=== PATIENT | female | born 2000 | race Caucasian/White ===

== ENCOUNTER 2021-12-26 15:09 | Emergency (ER) | payer OTHER, SELFPAY ==
--- NOTE | ~2021-12-26 | XR_ITS ---
EXAMINATION: XR ANKLE, RIGHT CLINICAL INFORMATION: Pain COMPARISON: None TECHNIQUE: AP, lateral, and mortise views of the right ankle. FINDINGS: The bones and soft tissues are normal. No fracture. Alignment is anatomic. Joint spaces are maintained. No joint effusion. XR/XR ankle RT 2V IMPRESSION: Normal right ankle.
[2021-12-26 16:10] VITALS: BP 104/60; PULSE 689; RESP 18; TEMP 36.9; O2SAT 98; BMI 25.4
--- NOTE | 2021-12-26 17:43 | ED_ITS ---
HPI - Extremity Injury (Lower) General Chief Complaint: Extremity Injury, Lower Stated Complaint: ankle pain Time Seen by Provider: 12/26/21 17:43 Source: patient Mode of arrival: ambulatory Limitations: no limitations History of Present Illness HPI Narrative: 21-year-old female here with reports of right ankle pain since Saturday with no known injury or trauma. Patient denies any previous injury. No reports of f ever, redness, swelling, numbness or tingling Related Data Allergies Allergy/AdvReac Type Severity Reaction Status Date / Time No Known Allergies Allergy Verified 12/26/21 17:37 Review of Systems Review of Systems: Yes all other systems are reviewed and are negative Constitutional: Constitutional: Reports no additional constitutional complaints, Denies body ache(s), Denies chills, Denies fever(s), Denies headache(s) and Denies weakness Eyes: Eyes: Reports no additional eye complaints and Denies change in vision ENT: Reports system reviewed and no additional complaints, except as documented, Denies dizziness, Denies headache(s), Denies nasal congestion, Denies nasal discharge and Denies neck pain Cardiovascular: Cardiovascular: Reports no additional cardiovascular complaints, Denies chest pain, Denies leg edema and Denies dyspnea Respiratory: Respiratory: Reports no additional respiratory complaints, Denies cough and Denies dyspnea Gastrointestinal: Gastrointestinal: Reports no additional gastrointestinal complaints, Denies abdominal pain, Denies diarrhea, Denies nausea and Denies vomiting Genitourinary: Genitourinary: Reports no additional female genitourinary complaints and Denies urinary incontinence Musculoskeletal: Musculoskeletal: Reports no additional musculoskeletal complaints, Denies back pain, Reports arthralgias, Denies joint swelling, Denies neck pain, Denies numbness and Denies tingling Integumentary/Breasts: Skin/Breast: Reports system reviewed and no additional complaints, except as docu and Denies rash Neurologic: Reports system reviewed and no additional complaints, except as documented, Denies Abnormal speech present, Denies dizziness, Denies headache(s), Denies numbness, Denies tingling and Denies weakness PMFSH Past Medical History Attestation statement: The following information was validated with the patient. Source: old records reviewed and nursing notes reviewed Social History Social History Advance Directives: No Advance Directives Information Provided: No Physical Exam Vital Signs: Vital Signs: Last Vital Signs Temp 98.5 F 12/26/21 16:10 Pulse 689 H 12/26/21 16:10 Resp 18 12/26/21 16:10 BP 104/60 12/26/21 16:10 Pulse Ox 98 12/26/21 16:10 BMI result Body Mass Index 25.4 Const: General: cooperative, healthy appearing, comfortable and no acute distress Orientation/consciousness: patient oriented x3 Limitations: no limitations HEENT: Head: Yes normal to inspection Ears: hearing grossly normal bilaterally General nose exam: Normal external nose present Face and sinus: Yes normal facial exam Mouth: Normal oral and palatal mucosa present Throat: Yes posterior oropharynx normal Eyes: General: appearance normal, both eyes and all related structures Pupils: Equal, round and reactive pupils present Neck: Neck: Yes normal visual inspection Chest: Chest palpation & inspection: normal inspection of the chest Resp: Effort & Inspection: normal respiratory effort Auscultation: clear to auscultation bilaterally Cardio: Rate: regular rate Rhythm: regular rhythm Peripheral pulses: Peripheral pulses 2+ throughout GI: Inspection: Yes normal to inspection Palpation (GI): Soft to palpation and nontender Auscultation: normal bowel sounds Back/Spine/Pelvis: Thoracic/Lumbar Spine: thoracic and lumbar spine normal to inspection Skin: General skin exam: no rashes or lesions noted Neuro: General: patient oriented x3, no focal motor deficits and normal sensation to monofilament Cranial nerves: Yes Equal, round and reactive pupils present Cognition (Neuro): normal cognition Speech: No Abnormal speech present Gait exam (Neuro): Normal gait present Motor exam (neuro): 5/5 motor strength present throughout Extrem: Other: there is mild tenderness to the right lateral ankle with FROM. Palpable DP and PT pulses. No swelling, no redness, no warmth. Neurovascular intact distally General: Yes normal to inspection Course Course Course Narrative: Atraumatic right ankle pain for several days. No evidence of warmth or redness or swelling. Low concern for septic joint or cellulitis with no skin changes or reports of fevers or chills and FROM. No polyarthralgia or other joint pain reported so less likely RA, lyme. X-ray show no bony abnormality. Will place in jarod wrap and crutches. [place]. Reviewed worrisome signs and symptoms of when to return to the emergency department. Comfortable discharge home. MDM - Extremity Injury (Lower) Medical Records Attestation: I reviewed the patient's medical records. Lab Data Attestation: I reviewed the patient's lab results. Imaging Data ankle xray: Attestation: I personally reviewed and interpreted this imaging study as follows: Radiologist's impression: [address] [address] XRay Report Signed Patient: Hanna Childers MR#: [id number] : 2000 Acct:[id number] Age/Sex: 21 / F ADM Date: 12/26/21 Loc: HO.ED Attending Dr: Ordering Physician: Generic ED Physician Date of Service: 12/26/21 Procedure(s): XR ankle RT 2V Accession Number(s): [id number] cc: Generic ED Physician~ EXAMINATION: XR ANKLE, RIGHT CLINICAL INFORMATION: Pain? COMPARISON: None? TECHNIQUE: AP, lateral, and mortise views of the right ankle. FINDINGS: The bones and soft tissues are normal. No fracture. Alignment is anatomic. Joint spaces are maintained. No joint effusion.? XR/XR ankle RT 2V IMPRESSION: Normal right ankle. Procedures Procedure Narrative Procedure Narrative: jarod wrap, crutches Discharge Plan Discharge Clinical Impression: Ankle pain, right Patient Disposition: Home, Self-Care Instructions: Arthralgia (ED) Additional Instructions: Rest, ice, elevation Use the Jarod wrap and crutches with nonweightbearing for few days until able to bear weight without experiencing pain Take Motrin 3 times daily Follow-up with primary care doctor in 7 days for persistent symptoms Referrals: Physician,Unknown J [Primary Care Provider] - 1 week (For persistent symptoms) Stand Alone Forms: Work/School Release Interventions: ED Discharge Assessment Last Done: 12/26/21 18:52 Discharge Date/Time: 12/26/21 18:54
== END 2021-12-26 18:54 | disposition home or self-care (01) ==
LOC: HO.ED 17:53
PROVIDERS: Emergency Provider Internal Medicine
DX: M25.571 Pain in right ankle and joints of right foot (principal)
CPT/HCPCS: 73600; 99282; 99283

== ENCOUNTER 2022-02-11 08:06 | Emergency (ER) | payer OTHER, SELFPAY ==
[2022-02-11 08:08] VITALS: BP 121/62; PULSE 82; RESP 18; TEMP 36.3; O2SAT 99; BMI 27.3
[2022-02-11 08:22] LABS: COVID-19 Test Positive (Negative); IDNOW Serial# 16C4AD1C
--- NOTE | 2022-02-11 08:42 | ED.GENADULT ---
HPI - General Adult General Chief complaint: General Medical Stated complaint: headache Time Seen by Provider: 02/11/22 08:34 Source: patient Mode of arrival: ambulatory History of Present Illness HPI narrative: 21 years old female presented to the emergency department with a chief complaint of headache, congestion, malaise x2 days Onset (ago): day(s) (2) Radiation: non-radiation Severity: moderate Quality: burning Pain Consistency: constant Exacerbating factors: none Treatments prior to arrival: none Related Data Allergies Allergy/AdvReac Type Severity Reaction Status Date / Time No Known Allergies Allergy Verified 12/26/21 17:37 Review of Systems Review of Systems: Yes all other systems are reviewed and are negative Cardiovascular: Cardiovascular: Reports no additional cardiovascular complaints Respiratory: Respiratory: Reports no additional respiratory complaints Gastrointestinal: Gastrointestinal: Reports no additional gastrointestinal complaints Genitourinary: Genitourinary: Reports no additional female genitourinary complaints Neurologic: Reports system reviewed and no additional complaints, except as documented PMFSH Social History Social History Advance Directives: No Advance Directives Information Provided: No Physical Exam ED Vital Signs: Vital Signs - 24 hr 02/11/22 08:08 Temperature 97.4 F Pulse Rate 82 Respiratory Rate 18 Blood Pressure 121/62 Pulse Oximetry 99 Oxygen Delivery Method Room Air BMI result Body Mass Index 27.3 Const General: cooperative Nutritional Appearance: average body habitus Orientation/consciousness: patient oriented x3 Limitations: no limitations HENMT Head: Yes normal to inspection Face and sinus: Yes normal facial exam Mouth: Normal oral and palatal mucosa present Neck Neck: Yes normal visual inspection, Yes full ROM and Yes no lymphadenopathy Chest Chest palpation & inspection: normal inspection of the chest Resp Effort & Inspection: normal respiratory effort Auscultation: clear to auscultation bilaterally Cardio Jugular venous distension: no JVD Rate: regular rate Rhythm: regular rhythm GI Inspection: Yes normal to inspection Palpation (GI): Soft to palpation, not firm, nontender, no guarding and not rigid Auscultation: normal bowel sounds Skin General skin exam: no rashes or lesions noted and elasticity normal Lesions: no lesions Rashes: no rashes Neuro General: patient oriented x3 Medical Decision Making [facility] Narrative Medical decision making narrative: Patient is COVID positive but she has a low risk she has no comorbidity oxygen saturation 99% she can be discharged home Lab Data Lab results reviewed: Yes I reviewed the patient's lab results. Labs: Lab Results 02/11/22 Range/Units 08:11 COVID-19 (MARCOS) Positive A (Negative) COVID-19 Clin Com See Note Discharge Plan Discharge Clinical Impression: COVID-19 Patient Disposition: Home, Self-Care Instructions: COVID-19 (Coronavirus Disease 2019) (ED) Additional Instructions: He tests positive for COVID take ibuprofen 600 mg every 8 hours as needed rest plenty of fluids Interventions: ED Discharge Assessment Last Done: 02/11/22 09:06 Discharge Date/Time: 02/11/22 09:06
[2022-02-11] MEDS: Ibuprofen 800 MG TABLET PO (09:03)
== END 2022-02-11 09:06 | disposition home or self-care (01) ==
PROVIDERS: Emergency Provider Emergency Medicine
DX: U07.1 COVID-19 (principal); R51.9 Headache, unspecified
CPT/HCPCS: 87635; 99283

== ENCOUNTER 2022-07-04 11:36 | Emergency (ER) | payer OTHER, SELFPAY ==
[2022-07-04 12:25] VITALS: BP 141/54; PULSE 122; RESP 19; TEMP 38.7; O2SAT 98; BMI 27.3
--- NOTE | 2022-07-04 12:30 | ED.URI ---
HPI - URI/Sore Throat General Chief Complaint: Upper Respiratory Symptoms <Marlon Nielsen MD - Last Filed: 07/04/22 12:32> Stated Complaint: headache, chills <Marlon Nielsen MD - Last Filed: 07/04/22 12:32> Time Seen by Provider: 07/04/22 15:42 <Marlon Nielsen MD - Last Filed: 07/04/22 12:32> Source: patient <LANDON Williamson - Last Filed: 07/04/22 16:00> Mode of arrival: ambulatory <LANDON Williamson - Last Filed: 07/04/22 16:00> Limitations: no limitations <LANDON Williamson - Last Filed: 07/04/22 16:00> History of Present Illness HPI Narrative: 21 year old female no past medical history presents with chill, fatigue, malaise and diffuse headache (w/o trauma, vision changes, or dizziness) since last night. Hasnt taken her temperature at home. Reports sudden onset of symptoms. No known sick contacts. Hasnt taken at home COVID test. Not vaccinated against Flu or COVID. Denies CP, SOB, nausea, vomiting, abdominal pain, vision changes, dizziness, leg swelling, sore throat, cough, ear pain. Eating and drinking well and in normal spirits. <LANDON Williamson - Last Filed: 07/04/22 16:00> Related Data Home Medications: Previous Rx's Medication Instructions Recorded oseltamivir 75 mg capsule (Tamiflu) 75 mg PO BID 5 days #10 caps 07/04/22 <Marlon Nielsen MD - Last Filed: 07/04/22 12:32> Allergies/Adverse Reactions: Allergies Allergy/AdvReac Type Severity Reaction Status Date / Time No Known Allergies Allergy Verified 07/04/22 12:24 <Marlon Nielsen MD - Last Filed: 07/04/22 12:32> Review of Systems Review of Systems: Constitutional : No Weight loss, No Fever, No Chills, + Fatigue, + Malaise ENT/Mouth : No sore throat, No Rhinorrhea Eyes: No Eye Pain, No Swelling, No Redness Cardiovascular : No Chest Pain, No SOB, No Dyspnea on Exertion, No Orthopnea, No Edema, No Palpitations Respiratory : No Cough, No Sputum, No Wheezing Gastrointestinal : No Nausea, No Vomiting, No Diarrhea, No Constipation, No abdominal Pain, No Hematochezia, No Melena Genitourinary : No Dysuria, No Urinary Frequency, No Hematuria, Musculoskeletal : No joint pain, No Myalgias, No Joint Swelling Skin : No Skin Lesions, No rash Neuro : No Weakness, No Numbness, No Dizziness, + Headache Psych : No Anxiety/Panic, No Depression <LANDON Williamson - Last Filed: 07/04/22 16:00> Yes all other systems are reviewed and are negative <LANDON Williamson - Last Filed: 07/04/22 16:00> [facility] Past Medical History Attestation statement: The following information was validated with the patient. <LANDON Williamson - Last Filed: 07/04/22 16:00> Source: old records reviewed and nursing notes reviewed <LANDON Williamson - Last Filed: 07/04/22 16:00> Social History Social History: Social History Advance Directives: No Advance Directives Information Provided: No <Marlon Nielsen MD - Last Filed: 07/04/22 12:32> Physical Exam Vital Signs: Vital Signs: Last Vital Signs Temp 101.7 F H 07/04/22 12:25 Pulse 122 H 07/04/22 12:25 Resp 19 07/04/22 12:25 BP 141/54 H 07/04/22 12:25 Pulse Ox 98 07/04/22 12:25 O2 Del Method 07/04/22 12:25 BMI result Body Mass Index 27.3 <Marlon Nielsen MD - Last Filed: 07/04/22 12:32> Vital Signs: Last Vital Signs Temp 101.7 F H 07/04/22 12:25 Pulse 122 H 07/04/22 12:25 Resp 19 07/04/22 12:25 BP 141/54 H 07/04/22 12:25 Pulse Ox 98 07/04/22 12:25 O2 Del Method 07/04/22 12:25 BMI result Body Mass Index 27.3 VSS <LANDON Williamson - Last Filed: 07/04/22 16:00> Appearance: Alert.? Oriented X3.? No acute distress.? Head:? Normocephalic, atraumatic, no step-offs or deformities Eyes: Pupils equal, round and reactive to light.? Neck: Normal inspection.? Neck supple.?No menigeal signs CVS: Rapid heart rate and nml rhythm.? Pulses normal.? Respiratory: No respiratory distress.? Breath sounds normal.? Abdomen: Soft and nontender.? Skin: Skin warm and dry.? Normal skin color.? Normal skin turgor.? Extremities: No lower extremity edema.? No calf ttp.? 5/5 strength to bilateral upper and lower extremities Neuro: Oriented X 3.? No motor deficit.? No sensory deficit. CN 2-12 intact. Normal steady gait w/ normal coordination. Normal rapid alternating movements. finger to nose wnl <LANDON Williamson - Last Filed: 07/04/22 16:00> Course Course Course Narrative: RME: 21-year-old female who presents emergency department for evaluation of cough, fever, chills, rhinorrhea and sore throat x2 days. Patient has been vaccinated for COVID-19 2 vaccines, she did not have influenza vaccine. Examination did reveal a fever 101.7 and tachycardia. She is awake and alert, answers all questions appropriately, head normocephalic atraumatic, pupils equal round reactive light, sclera contact however normal, nares revealed thick rhinorrhea, mouth revealed moist membranes with no erythema or exudate, lungs clear to auscultation, breath sounds symmetric bilaterally, heart tachycardia normal S1-S2 no murmurs rubs gallops, abdomen soft nontender, extremities unremarkable, neurologic exam nonfocal. Patient was ordered to get Motrin 600 mg orally for fever. Also ordered COVID and influenza test. I do not think that she needs blood work or x-ray at this time. <Marlon Nielsen MD - Last Filed: 07/04/22 12:32> Reevaluation(s) Reevaluation #1: Influenza + discussed initiation of tamiflu with patient she would like it, appropriate sx onset < 48hours. DC home with pcp fu and strict return percautions. Comfortable w/ dc <LANDON Williamson - Last Filed: 07/04/22 16:00> Medications Administered Discontinued Medications Generic Name Dose Route Start Last Admin Trade Name Freq PRN Reason Stop Dose Admin Ibuprofen 600 mg 07/04/22 12:29 07/04/22 12:32 Ibuprofen 600 Mg Tablet PO 07/04/22 12:30 600 mg ONCE STA Administration <Marlon Nielsen MD - Last Filed: 07/04/22 12:32> Medications Administered Discontinued Medications Generic Name Dose Route Start Last Admin Trade Name Freq PRN Reason Stop Dose Admin Ibuprofen 600 mg 07/04/22 12:29 07/04/22 12:32 Ibuprofen 600 Mg Tablet PO 07/04/22 12:30 600 mg ONCE STA Administration <LANDON Williamson - Last Filed: 07/04/22 16:00> MDM - URI/Sore Throat MDM Narrative Medical decision making narrative: 1544 21 year old female presents w/ flu like sx since last night. Not vaccinated PE w/ febrile patient and tachycardia. Lungs clear. Abd soft non tender non distended. Neuro nonfocal. Cerbellar intact To note patient has tachycardia, fever likely secondary to viral infection. ALBARRAN likely secondary to viral infection. Unlikely stroke, posterior stroke, ICH, SAH, PNA, PE, CHF Plan: Flu/Covid/RSV <LANDON Williamson - Last Filed: 07/04/22 16:00> Medical Records Attestation: I reviewed the patient's medical records. <LANDON Williamson - Last Filed: 07/04/22 16:00> Lab Data Attestation: I reviewed the patient's lab results. <LANDON Williamson - Last Filed: 07/04/22 16:00> Labs: Lab Results 07/04/22 07/04/22 Range/Units 12:36 12:36 COVID-19 (MARCOS) Negative (Negative) COVID-19 Clin Com See Note Influenza Type A (ANTHONY) Positive A (Negative) Influenza Type B (ANTHONY) Negative (Negative) Influenza A & B Note See Note <Marlon Nielsen MD - Last Filed: 07/04/22 12:32> Lab Results 07/04/22 07/04/22 Range/Units 12:36 12:36 COVID-19 (MARCOS) Negative (Negative) COVID-19 Clin Com See Note Influenza Type A (ANTHONY) Positive A (Negative) Influenza Type B (ANTHONY) Negative (Negative) Influenza A & B Note See Note <LANDON Williamson - Last Filed: 07/04/22 16:00> Discharge Plan Discharge Clinical Impression: Influenza <Marlon Nielsen MD - Last Filed: 07/04/22 12:32> Patient Disposition: Home, Self-Care <Marlon Nielsen MD - Last Filed: 07/04/22 12:32> Instructions: Influenza (ED) <Marlon Nielsen MD - Last Filed: 07/04/22 12:32> Additional Instructions: Take your medications as prescribed. If you were prescribed antibiotics today, it is important that you take your medication to their entirety, do not skip any doses, do not finish them early. Follow-up with your primary care provider this week. Return to the emergency department with new or worsening symptoms fevers, chills, chest pain, shortness of breath, vision change, weakness For pain/fever/chills ibuprofen every 6 hours tylenol every 4 hours You are contagious follow good hygiene practices In case of emergency call 911 <Marlon Nielsen MD - Last Filed: 07/04/22 12:32> Prescriptions: New oseltamivir [Tamiflu] 75 mg capsule 75 mg PO BID 5 Days Qty: 10 0RF <Marlon Nielsen MD - Last Filed: 07/04/22 12:32> Referrals: Physician,Unknown J [Primary Care Provider] - 2 days <Marlon Nielsen MD - Last Filed: 07/04/22 12:32> Stand Alone Forms: Work/School Release <Marlon Nielsen MD - Last Filed: 07/04/22 12:32>
[2022-07-04] MEDS: Ibuprofen 600 MG TABLET PO (12:32)
[2022-07-04 12:56] LABS: COVID-19 Test Negative (Negative); IDNOW Serial# BCCEAD1C
[2022-07-04 13:02] LABS: IDNOW Serial# 9DB6401D; Influenza A Positive (Negative); Influenza B2 Negative (Negative)
--- NOTE | 2022-07-04 15:42 | ED.GENADULT ---
HPI - General Adult General Chief complaint: Upper Respiratory Symptoms Stated complaint: headache, chills Time Seen by Provider: 07/04/22 15:42 Source: patient Mode of arrival: ambulatory Limitations: no limitations History of Present Illness HPI narrative: 21 year old female no past medical history presents with chill, fatigue, malaise and diffuse headache (w/o trauma, vision changes, or dizziness) since last night. Hasnt taken her temperature at home. Reports sudden onset of symptoms. No known sick contacts. Hasnt taken at home COVID test. Not vaccinated against Flu or COVID. Denies CP, SOB, nausea, vomiting, abdominal pain, vision changes, dizziness, leg swelling, sore throat, cough, ear pain. Eating and drinking well and in normal spirits. Related Data Previous Rx's Medication Instructions Recorded oseltamivir 75 mg capsule (Tamiflu) 75 mg PO BID 5 days #10 caps 07/04/22 Allergies Allergy/AdvReac Type Severity Reaction Status Date / Time No Known Allergies Allergy Verified 07/04/22 12:24 Review of Systems Review of Systems: Constitutional : No Weight loss, No Fever, No Chills, + Fatigue, + Malaise ENT/Mouth : No sore throat, No Rhinorrhea Eyes: No Eye Pain, No Swelling, No Redness Cardiovascular : No Chest Pain, No SOB, No Dyspnea on Exertion, No Orthopnea, No Edema, No Palpitations Respiratory : No Cough, No Sputum, No Wheezing Gastrointestinal : No Nausea, No Vomiting, No Diarrhea, No Constipation, No abdominal Pain, No Hematochezia, No Melena Genitourinary : No Dysuria, No Urinary Frequency, No Hematuria, Musculoskeletal : No joint pain, No Myalgias, No Joint Swelling Skin : No Skin Lesions, No rash Neuro : No Weakness, No Numbness, No Dizziness, + Headache Psych : No Anxiety/Panic, No Depression All other systems reviewed and are negative Yes all other systems are reviewed and are negative [facility] Past Medical History Attestation statement: The following information was validated with the patient. Source: old records reviewed and nursing notes reviewed Social History Social History Advance Directives: No Advance Directives Information Provided: No Physical Exam ED Vital Signs: Vital Signs - 24 hr 07/04/22 12:25 Temperature 101.7 F H Pulse Rate 122 H Respiratory Rate 19 Blood Pressure 141/54 H Pulse Oximetry 98 Oxygen Delivery Method Room Air BMI result Body Mass Index 27.3 febrile and tachycardic. Appearance: Alert.? Oriented X3.? No acute distress.? Head: Normocephalic, atraumatic, no step-offs or deformities Eyes: Pupils equal, round and reactive to light.? Neck: Normal inspection.? Neck supple.?No menigeal signs CVS: Normal heart rate and rhythm.? Pulses normal.? Respiratory: No respiratory distress.? Breath sounds normal.? Abdomen: Soft and nontender.? Skin: Skin warm and dry.? Normal skin color.? Normal skin turgor.? Extremities: No lower extremity edema.? No calf ttp. 5/5 strength to bilateral upper and lower extremities Neuro: Oriented X 3.? No motor deficit.? No sensory deficit. CN 2-12 intact. Normal steady gait w/ normal coordination. Normal rapid alternating movements. finger to nose wnl Course Reevaluation(s) Reevaluation #1: Influenza + discussed initiation of tamiflu with patient she would like it, appropriate sx onset < 48hours. DC home with pcp fu and strict return percautions. Comfortable w/ dc Time: 15:54 Medications Administered Discontinued Medications Generic Name Dose Route Start Last Admin Trade Name Mikq PRN Reason Stop Dose Admin Ibuprofen 600 mg 07/04/22 12:29 07/04/22 12:32 Ibuprofen 600 Mg Tablet PO 07/04/22 12:30 600 mg ONCE STA Administration Medical Decision Making [facility] Narrative Medical decision making narrative: 1544 21 year old female presents w/ flu like sx since last night. Not vaccinated PE w/ febrile patient and tachycardia. Lungs clear. Abd soft non tender non distended. Neuro nonfocal. Cerbellar intact To note patient has tachycardia, fever likely secondary to viral infection. ALBARRAN likely secondary to viral infection. Unlikely stroke, posterior stroke, ICH, SAH, PNA, PE, CHF Plan: Flu/Covid/RSV Medical Records Medical records reviewed: Yes I reviewed the patient's medical records. Lab Data Lab results reviewed: Yes I reviewed the patient's lab results. Labs: Lab Results 07/04/22 07/04/22 Range/Units 12:36 12:36 COVID-19 (MARCOS) Negative (Negative) COVID-19 Clin Com See Note Influenza Type A (ANTHONY) Positive A (Negative) Influenza Type B (ANTHONY) Negative (Negative) Influenza A & B Note See Note Critical Care Time Critical Care Time Critical Care Time: No Discharge Plan Discharge Clinical Impression: Influenza Patient Disposition: Home, Self-Care Instructions: Influenza (ED) Additional Instructions: Take your medications as prescribed. If you were prescribed antibiotics today, it is important that you take your medication to their entirety, do not skip any doses, do not finish them early. Follow-up with your primary care provider this week. Return to the emergency department with new or worsening symptoms fevers, chills, chest pain, shortness of breath, vision change, weakness For pain/fever/chills ibuprofen every 6 hours tylenol every 4 hours You are contagious follow good hygiene practices In case of emergency call 911 Prescriptions: New oseltamivir [Tamiflu] 75 mg capsule 75 mg PO BID 5 Days Qty: 10 0RF Referrals: Physician,Roberto J [Primary Care Provider] - 2 days Stand Alone Forms: Work/School Release
[2022-07-04 16:12] VITALS: PULSE 105; RESP 16; TEMP 37.2; O2SAT 98
[2022-07-04 16:16] VITALS: PULSE 105; RESP 16; TEMP 37.2
== END 2022-07-04 16:16 | disposition home or self-care (01) ==
PROVIDERS: Emergency Medicine Emergency Medical Services; Emergency Provider Student in an Organized Health Care Education/Training Program
DX: J11.1 Influenza due to unidentified influenza virus with other respiratory manifestations (principal); R50.9 Fever, unspecified; Z20.822 Contact with and (suspected) exposure to COVID-19
CPT/HCPCS: 87502; 87635; 99283; 99284